=== PATIENT | female | born 1985 | race African-American/Black ===

== ENCOUNTER 2016-11-23 13:17 | Emergency (ER) | payer OTHER ==
[~2016-11-23] VITALS: Ht 167.6 cm; Wt 59.0 kg
[~2016-11-23 13:17] MED LIST: ACETAMINOPHEN500 M3 ORAL; AZITHROMYCIN250 MG ORAL; CYCLOBENZAPRINE10 MG ORAL; GYNE-LOTRIMIN45 GM VG; IBUPROFEN600 MG ORAL; METRONIDAZOLE500 MG ORAL; NKM; ZYRTEC10 MG ORAL
[2016-11-23 15:03] LABS: APPEARANCE,URINE CLEAR; KETONES,URINE NEGATIVE (NEGATIVE); LEUKOCYTE ESTERASE ,URINE 3+ (NEGATIVE); NITRITE,URINE NEGATIVE (NEGATIVE); PH,URINE 8 (4.5-8.0); PROTEIN,URINE NEGATIVE (NEGATIVE); UROBILINOGEN,URINE 1 MG/DL (0.0-1.0)
[2016-11-23] MEDS ORDERED: ZOFRAN4 M3 ORAL (15:05)
[2016-11-23 15:15] LABS: BACTERIA,URINE FEW /HPF; RBC,URINE 0-2 /HPF (0 - 2); SQUAMOUS EPITHELIAL CELL,UR FEW /LPF (NONE/OCC)
[2016-11-23] MEDS ORDERED: METRONIDAZOLE500 MG ORAL (15:33)
[2016-11-23 15:48] VITALS: BP 99/48
[2016-11-23 15:50] VITALS: BP 99/48
--- NOTE | 2016-11-23 23:09 | Emergency Room Report ---
History of Present Illness General Chief Complaint: Female Urogenital Problems Source: Patient Present Illness HPI The patient is a 31-year-old female sent in for 2 days of dysuria and white vaginal discharge with malodor. The patient denies nausea, vomiting, fever, chills, flank pain, abd pain Allergies: Coded Allergies: No Known Allergies (Unverified , 06/19/15) Patient History Past Medical History: see triage record Pertinent Family History: none Last Menstrual Period: 11/10/16 Now: No Reviewed Nursing Documentation: PMH: Agreed, PSxH: Agreed Nursing Documentation-PMH Past Medical History: No Stated History Review of Systems All Other Systems: negative except mentioned in HPI Physical Exam Vital Signs Date Time Temp Pulse Resp B/P Pulse Ox O2 Delivery O2 Flow Rate FiO2 11/23/16 13:25 98.8 106 16 81/51 97 Room Air Sp02 EP Interpretation: reviewed, normal General Appearance: no apparent distress, alert, GCS 15, non-toxic Head: normocephalic, atraumatic Eyes: bilateral eye PERRL, bilateral eye normal inspection ENT: hearing grossly normal, normal pharynx, no angioedema, normal voice Neck: full range of motion, supple/symm/no masses Respiratory: chest non-tender, lungs clear, normal breath sounds, speaking full sentences Cardiovascular #1: regular rate, rhythm, no edema Cardiovascular #2: 2+ carotid (R), 2+ carotid (L), 2+ radial (R), 2+ radial (L) , 2+ dorsalis pedis (R), 2+ dorsalis pedis (L) Gastrointestinal: normal bowel sounds, non tender, soft, non-distended, no guarding, no rebound Rectal: deferred Genitourinary: normal inspection, no CVA tenderness Musculoskeletal: back normal, gait/station normal, normal range of motion, non- tender Neurologic: alert, oriented x3, responsive, motor strength/tone normal, sensory intact, speech normal Psychiatric: judgement/insight normal, memory normal, mood/affect normal, no suicidal/homicidal ideation Reflexes: 3+ bicep (R), 3+ bicep (L), 3+ tricep (R), 3+ tricep (L), 3+ knee (R) , 3+ knee (L) Skin: normal color, no rash, warm/dry, well hydrated Lymphatic: no adenopathy Medical Decision Making PA Attestation Dr. Dang is my supervising physician. Patient management was discussed with my supervising physician Diagnostic Impression: Primary Impression: Bacterial vaginosis ER Course The patient is a 31-year-old female sent in for 2 days of dysuria and white vaginal discharge with malodor. The patient denies nausea, vomiting, fever, chills, flank pain, abd pain Differential diagnosis considered but not limited to: UTI, vaginitis, BV, pyelonephritis, ectopic PE: Vitals WNL. NAD. Abdomen: Normal appearance. Non distended. No ecchymosis. Normal BS. Non TTP. No McBurney point tenderness. No guarding. No CVA tenderness Labs: negative preg. UA not consistent with UTI The patient will be discharged home with a prescription for metronidazole. ER precautions are given Laboratory Tests Test 11/23/16 14:30 Urine Color Yellow Urine Appearance Clear Urine pH 8 (4.5-8.0) Urine Specific [place] 1.010 (1.005-1.035) Urine Protein Negative (NEGATIVE) Urine Glucose (UA) Negative (NEGATIVE) Urine Ketones Negative (NEGATIVE) Urine Occult Blood 1+ (NEGATIVE) H Urine Nitrite Negative (NEGATIVE) Urine Bilirubin Negative (NEGATIVE) Urine Urobilinogen 1 MG/DL (0.0-1.0) H Urine Leukocyte Esterase 3+ (NEGATIVE) H Urine RBC 0-2 /HPF (0 - 2) Urine WBC 2-4 /HPF (0 - 2) Urine Squamous Epithelial Cells Few /LPF (NONE/OCC) Urine Bacteria Few /HPF (NONE) Urine HCG, Qualitative Negative Lab Results Impression Not Consistent with UTI Last Vital Signs Date Time Temp Pulse Resp B/P Pulse Ox O2 Delivery O2 Flow Rate FiO2 11/23/16 15:50 98.8 98 16 99/48 97 Room Air Status: improved Disposition: HOME, SELF-CARE Condition: Improved Scripts Metronidazole* (FLAGYL*) 500 Mg Tablet 500 MG ORAL Q12HR, #14 TAB Prov: CINDY ANDRES 11/23/16 Patient Instructions: Bacterial Vaginosis Additional Instructions: I discussed my findings with the patient. All questions and concerns have been answered. Treatment and medication compliance have been addressed. I advised the patient that they need to follow up with PMD in 3-5 days. Return to ED if symptoms worsen, new symptoms arise, or if needed for any reason. Patient verbalized understanding of discharge instructions. CINDY ANDRES Nov 23, 2016 23:09
== END 2016-11-23 15:52 | disposition home or self-care (01) ==
LOC: EMR 13:40
DX: N76.0 Acute vaginitis (principal)
CPT/HCPCS: 81003; 81025; 99282

== ENCOUNTER 2019-01-27 10:05 | Emergency (ER) | payer OTHER ==
[~2019-01-27] VITALS: Ht 162.6 cm; Wt 63.5 kg
[~2019-01-27 10:05] MED LIST changes: +ZOFRAN4 M3 ORAL
[2019-01-27 10:15] VITALS: BP 96/57
--- NOTE | 2019-01-27 10:15 | NUR ---
ED Nurse Note: pt walked in to ED due to pain on between left 3rd and 4th digit toe. bursted blister noted. per pt, whitish discharge noted at home. no fever noted. will wait for the further order.
--- NOTE | 2019-01-27 11:46 | Emergency Room Report ---
History of Present Illness General Chief Complaint: Pain Source: Patient Present Illness HPI This patient states that the past couple weeks she has noticed an area of friable skin between her third and fourth toes. She states she's noted that is become ulcerated. She states it is a little tender but otherwise does not bother her. She has no history of trauma. She denies fever or chills. She has no other complaints. Allergies: Coded Allergies: No Known Allergies (Unverified , 06/19/15) Patient History Past Medical History: none, see triage record Past Surgical History: Social History: Denies: smoking, alcohol use, drug use Last Menstrual Period: 01/17/2019 Reviewed Nursing Documentation: PMH: Agreed; PSxH: Agreed Nursing Documentation-PMH Past Medical History: No Stated History Review of Systems All Other Systems: negative except mentioned in HPI Physical Exam Vital Signs Date Time Temp Pulse Resp B/P (MAP) Pulse Ox O2 Delivery O2 Flow Rate FiO2 01/27/19 10:09 98.2 71 16 96/57 97 Room Air Sp02 EP Interpretation: reviewed, normal General Appearance: no apparent distress, alert, GCS 15, non-toxic Head: normocephalic, atraumatic Eyes: bilateral eye normal inspection, bilateral eye PERRL ENT: hearing grossly normal, normal pharynx, no angioedema, normal voice Neck: normal inspection Respiratory: no respiratory distress, no retraction, no accessory muscle use, speaking full sentences Rectal: deferred Musculoskeletal: back normal, gait/station normal, normal range of motion, non- tender, other - See below in skin exam Neurologic: alert, oriented x3, responsive, motor strength/tone normal, sensory intact, speech normal Psychiatric: judgement/insight normal, memory normal, mood/affect normal, no suicidal/homicidal ideation Skin: well hydrated, other - Macerated skin with ulceration approximated 1 cm area between 3rd and 4th toes of the L. foot. Medical Decision Making Diagnostic Impression: Primary Impression: Tinea pedis ER Course This patient has findings consistent with tinea pedis. There is no evidence of infection or cellulitis. I will give the patient topical antifungals. The patient was also instructed to follow-up with a railcar switcher for her bunion on that same foot. She was also instructed to get close wound follow-up for the area of ulceration consistent with tinea pedis. Last Vital Signs Date Time Temp Pulse Resp B/P (MAP) Pulse Ox O2 Delivery O2 Flow Rate FiO2 01/27/19 10:15 98.2 71 16 96/57 97 Room Air Status: improved Disposition: HOME, SELF-CARE Condition: Improved Referrals: NON PHYSICIAN (PCP) Viridiana Carey DO Jan 27, 2019 11:46
[2019-01-27] MEDS ORDERED: NYSTATIN15 G2 TP (11:49)
[2019-01-27] MEDS ORDERED: TERBINAFINE HCL30 GM TP (11:49)
[2019-01-27 11:53] VITALS: BP 100/74
--- NOTE | 2019-01-27 11:54 | NUR ---
ER DISCHARGE NOTE: Patient is cleared to be discharged per ERMD, pt is aox4, on room air, with stable vital signs. pt was given dc and prescription instructions, pt was able to verbalize understanding, pt id band removed. pt is able to ambulate with steady gait. pt took all belongings.
== END 2019-01-27 11:54 | disposition home or self-care (01) ==
LOC: EMR 11:00
DX: B35.3 Tinea pedis (principal)
CPT/HCPCS: 99282

== ENCOUNTER 2019-03-15 08:48 | Emergency (ER) | payer OTHER ==
[~2019-03-15] VITALS: Ht 162.6 cm; Wt 62.1 kg
[~2019-03-15 08:48] MED LIST changes: +NYSTATIN15 G2 TP; +TERBINAFINE HCL30 GM TP
[2019-03-15] MEDS ORDERED: NKM (08:53)
--- NOTE | 2019-03-15 09:00 | NUR ---
ED Nurse Note: Patient walked into ED from home due to lower abdominal pain since Wednesday. patient also reports nausea, denies vomiting or diarrhea. patient reports that she did tests at home 03/26 were positive. patient is alert awake x4 ambulatory, breathing even and unlabored.
[2019-03-15 09:33] LABS: APPEARANCE,URINE CLEAR; BILIRUBIN, URINE NEGATIVE (NEGATIVE); COLOR,URINE PALE YELLOW; GLUCOSE, URINE (UA) NEGATIVE (NEGATIVE); KETONES,URINE NEGATIVE (NEGATIVE); LEUKOCYTE ESTERASE ,URINE 1+ (NEGATIVE); NITRITE,URINE NEGATIVE (NEGATIVE); PH,URINE 7 (4.5-8.0); PROTEIN,URINE NEGATIVE (NEGATIVE); UROBILINOGEN,URINE NORMAL MG/DL (0.0-1.0)
--- NOTE | 2019-03-15 09:37 | NUR ---
ED Nurse Note: blood/urine sent to lab
[2019-03-15 09:41] VITALS: BP 121/75
[2019-03-15 09:44] LABS: BASOPHILS % (AUTO) 0.6 % (0.0-2.0); EOSINOPHILS % (AUTO) 0.2 % (0.0-3.0); HEMATOCRIT 41.3 % (37.0-47.0); HEMOGLOBIN 14.3 G/DL (12.0-16.0); LYMPHOCYTES % (AUTO) 17.7 % (20.0-45.0); MEAN CORPUSCULAR VOLUME 94 FL (80-99); MONOCYTES % (AUTO) 8.5 % (1.0-10.0); PLATELET COUNT 244 K/UL (150-450); RED BLOOD COUNT 4.41 M/UL (4.20-5.40); RED CELL DISTRIBUTION WIDTH 10.7 % (11.6-14.8); WHITE BLOOD COUNT 8.5 K/UL (4.8-10.8)
[2019-03-15 09:53] LABS: ANION GAP 10 mmol/L (5-15); BLOOD UREA NITROGEN 14 mg/dL (7-18); CALCIUM 8.8 MG/DL (8.5-10.1); CARBON DIOXIDE 25 MMOL/L (21-32); CHLORIDE 99 MMOL/L (98-107); CREATININE 0.7 MG/DL (0.55-1.30); POTASSIUM 4.2 MMOL/L (3.5-5.1); SODIUM 134 MMOL/L (136-145)
[2019-03-15 09:58] LABS: ALANINE AMINOTRANSFERASE 25 U/L (12-78); ALBUMIN 4.3 G/DL (3.4-5.0); ALBUMIN/GLOBULIN RATIO 1.1 (1.0-2.7); ALKALINE PHOSPHATASE 59 U/L (46-116); ASPARTATE AMINO TRANSFERASE 18 U/L (15-37); BILIRUBIN,TOTAL 0.5 MG/DL (0.2-1.0)
--- NOTE | 2019-03-15 10:05 | NUR ---
ED Nurse Note: US CALLED
--- NOTE | 2019-03-15 10:33 | NUR ---
ED Nurse Note: patient went to ultrasound
--- NOTE | 2019-03-15 10:35 | Emergency Room Report ---
History of Present Illness General Chief Complaint: Abdominal Pain Source: Patient Present Illness HPI 34-year-old female presents ED for evaluation. Patient states that she's been experiencing cramping lower pain for the last few days. Dull, 5 out of 10, nonradiating. Denies dysuria. Denies vaginal bleeding. States that she took 5 tests at home which were all positive. States that she has since missed her period. No other aggravating relieving factors. Denies any other associated symptoms Allergies: Coded Allergies: ORANGE (Verified Allergy, Unknown, 03/15/19) Patient History Past Medical History: none Past Surgical History: none Pertinent Family History: none Social History: Denies: smoking, alcohol use, drug use Last Menstrual Period: FEBRUARY 12, 2019 Now: Yes Immunizations: UTD Reviewed Nursing Documentation: PMH: Agreed; PSxH: Agreed Review of Systems All Other Systems: negative except mentioned in HPI Physical Exam Vital Signs Date Time Temp Pulse Resp B/P (MAP) Pulse Ox O2 Delivery O2 Flow Rate FiO2 03/15/19 08:50 98.4 75 22 117/71 98 Room Air Sp02 EP Interpretation: reviewed, normal General Appearance: no apparent distress, alert, GCS 15, non-toxic Head: normocephalic, atraumatic Eyes: bilateral eye normal inspection, bilateral eye PERRL ENT: hearing grossly normal, normal pharynx, no angioedema, normal voice Neck: full range of motion, supple/symm/no masses Respiratory: chest non-tender, lungs clear, normal breath sounds, speaking full sentences Cardiovascular #1: regular rate, rhythm, no edema Cardiovascular #2: 2+ carotid (R), 2+ carotid (L), 2+ radial (R), 2+ radial (L) , 2+ dorsalis pedis (R), 2+ dorsalis pedis (L) Gastrointestinal: normal bowel sounds, non tender, soft, non-distended, no guarding, no rebound Rectal: deferred Genitourinary: normal inspection, no CVA tenderness Musculoskeletal: back normal, gait/station normal, normal range of motion, non- tender Neurologic: alert, oriented x3, responsive, motor strength/tone normal, sensory intact, speech normal Psychiatric: judgement/insight normal, memory normal, mood/affect normal, no suicidal/homicidal ideation Reflexes: 3+ bicep (R), 3+ bicep (L), 3+ tricep (R), 3+ tricep (L), 3+ knee (R) , 3+ knee (L) Skin: normal color, no rash, warm/dry, well hydrated Lymphatic: no adenopathy Medical Decision Making Diagnostic Impression: Primary Impression: Threatened ER Course Hospital Course 34-year-old female presents to ED complaining of lower abdominal pain. possible Differential diagnoses include: gastrits, gastroenterits, ectopic , ovarian torsion/cyst, UTI Clinical course Patient placed on stretcher in ED. After initial history and physical I ordered labs, IV fluids and OB US Labs-no leukocytosis, electrolytes okay, beta hCG 1800, UA negative OB ultrasound- early IUP detected without heart rate. No adnexal masses. Discussed findings with patient. Safe for discharge and close outpatient follow -up. States she needs a referral from her PMD to see RETURN TO FACTORY CLERK. I'll also provide referrals Diagnosis - threatened Stable and discharged to home with Rx Zofran. Followup with PMD/RETURN TO FACTORY CLERK. Return to ED if symptoms recur or worsen Labs Test 03/15/19 09:00 03/15/19 09:32 Urine Color Pale yellow Urine Appearance Clear Urine pH 7 (4.5-8.0) Urine Specific [place] 1.010 (1.005-1.035) Urine Protein Negative (NEGATIVE) Urine Glucose (UA) Negative (NEGATIVE) Urine Ketones Negative (NEGATIVE) Urine Blood Negative (NEGATIVE) Urine Nitrite Negative (NEGATIVE) Urine Bilirubin Negative (NEGATIVE) Urine Urobilinogen Normal MG/DL (0.0-1.0) Urine Leukocyte Esterase 1+ (NEGATIVE) Urine RBC 0-2 /HPF (0 - 2) Urine WBC 2-4 /HPF (0 - 2) Urine Squamous Epithelial Cells Moderate /LPF (NONE/OCC) Urine Bacteria Few /HPF (NONE) Urine HCG, Qualitative Positive (NEGATIVE) White Blood Count 8.5 K/UL (4.8-10.8) Red Blood Count 4.41 M/UL (4.20-5.40) Hemoglobin 14.3 G/DL (12.0-16.0) Hematocrit 41.3 % (37.0-47.0) Mean Corpuscular Volume 94 FL (80-99) Mean Corpuscular Hemoglobin 32.5 PG (27.0-31.0) Mean Corpuscular Hemoglobin Concent 34.7 G/DL (32.0-36.0) Red Cell Distribution Width 10.7 % (11.6-14.8) Platelet Count 244 K/UL (150-450) Mean Platelet Volume 6.0 FL (6.5-10.1) Neutrophils (%) (Auto) 73.0 % (45.0-75.0) Lymphocytes (%) (Auto) 17.7 % (20.0-45.0) Monocytes (%) (Auto) 8.5 % (1.0-10.0) Eosinophils (%) (Auto) 0.2 % (0.0-3.0) Basophils (%) (Auto) 0.6 % (0.0-2.0) Sodium Level 134 MMOL/L (136-145) Potassium Level 4.2 MMOL/L (3.5-5.1) Chloride Level 99 MMOL/L (98-107) Carbon Dioxide Level 25 MMOL/L (21-32) Anion Gap 10 mmol/L (5-15) Blood Urea Nitrogen 14 mg/dL (7-18) Creatinine 0.7 MG/DL (0.55-1.30) Estimat Glomerular Filtration Rate > 60 mL/min (>60) Glucose Level 80 MG/DL (74-106) Calcium Level 8.8 MG/DL (8.5-10.1) Total Bilirubin 0.5 MG/DL (0.2-1.0) Aspartate Amino Transf (AST/SGOT) 18 U/L (15-37) Alanine Aminotransferase (ALT/SGPT) 25 U/L (12-78) Alkaline Phosphatase 59 U/L (46-116) Total Protein 8.2 G/DL (6.4-8.2) Albumin 4.3 G/DL (3.4-5.0) Globulin 3.9 g/dL Albumin/Globulin Ratio 1.1 (1.0-2.7) Lipase 107 U/L (73-393) Human Chorionic Gonadotropin, Quant 1817 mIU/mL (1-6) CT/MRI/US Diagnostic Results CT/MRI/US Diagnostic Results : Imaging Test Ordered: OB US Impression Findings: Uterus measures 9.6 any length by 4.3 cm AP. Endometrium appears somewhat thickened. It measures up to 17 mm thick. 3 mm fluid collection is seen within the endometrium, equivocally with a small surrounding decidual reaction. No yolk sac , pole, heart activity demonstrated. Unremarkable endometrium. The ovaries demonstrate normal blood flow. Right ovary measures 3.6 cm length. Left ovary measures 3.3 cm length. No adnexal mass. There is a small amount of free cul-de- sac fluid Last Vital Signs Date Time Temp Pulse Resp B/P (MAP) Pulse Ox O2 Delivery O2 Flow Rate FiO2 03/15/19 09:43 82 17 Room Air 03/15/19 09:41 98.4 121/75 99 Status: improved Disposition: HOME, SELF-CARE Condition: Stable Scripts Ondansetron Odt* (ZOFRAN ODT*) 4 Mg Tab.rapdis 4 MG BC EVERY 6 HOURS PRN for Nausea & Vomiting, #30 TAB 0 Refills Prov: Zach Gaines MD 03/15/19 Referrals: NON PHYSICIAN (PCP) Zach Gaines MD Mar 15, 2019 10:35
--- NOTE | 2019-03-15 11:28 | NUR ---
ED Nurse Note: patient came back from US
[2019-03-15 12:28] VITALS: BP 118/71
[2019-03-15] MEDS ORDERED: ONDANSETRON ODT4 MG BC (12:32)
[2019-03-15 12:42] VITALS: BP 118/71
--- NOTE | 2019-03-15 12:59 | Diagnostic Imaging Report ---
Indication: Positive test, abdominal pain, pelvic pain Technique: Transabdominal and transvaginal images of the pelvis. Doppler interrogation of the ovaries Comparison: none Findings: Uterus measures 9.6 any length by 4.3 cm AP. Endometrium appears somewhat thickened. It measures up to 17 mm thick. 3 mm fluid collection is seen within the endometrium, equivocally with a small surrounding decidual reaction. No yolk sac, pole, heart activity demonstrated. Unremarkable endometrium. The ovaries demonstrate normal blood flow. Right ovary measures 3.6 cm length. Left ovary measures 3.3 cm length. No adnexal mass. There is a small amount of free cul-de-sac fluid Impression: 3 mm fluid collection within the endometrium, possibly but not definitively an early gestational sac. Recommend correlation with serial beta hCGs and follow-up sonography as indicated Trace free cul-de-sac fluid, presumably physiologic Negative for adnexal mass. Normal ovaries
== END 2019-03-15 12:42 | disposition home or self-care (01) ==
LOC: EMR 09:12
DX: O20.0 Threatened abortion (principal); Z3A.00 Weeks of gestation of pregnancy not specified; Z91.018 Allergy to other foods
CPT/HCPCS: 36415; 76801; 76830; 80053; 81003; 81025; 83690; 84702; 85025; 99284

== ENCOUNTER 2019-08-28 09:03 | Emergency (ER) | payer OTHER ==
[~2019-08-28] VITALS: Ht 162.6 cm; Wt 68.0 kg
[~2019-08-28 09:03] MED LIST changes: +ONDANSETRON ODT4 MG BC
[2019-08-28] MEDS ORDERED: CALCIUM500 M3 PO (09:12)
[2019-08-28] MEDS ORDERED: FOLIC ACID0.4 MG ORAL (09:12)
[2019-08-28] MEDS ORDERED: FERROUS SULFAT325 M2 ORAL (09:12)
--- NOTE | 2019-08-28 09:17 | NUR ---
ED Nurse Note: Patient walked in to ER, c/o on and off sharp pain on her upper left abdomen. Patient is 28 weeks for her 2nd baby. Patient stated that she noted vaginal whie thick discharge with no odor. No bleeding noted. Patient denied taking any pain medication. Noted with incision scar on her lower abdomen s/p ceasarian section. No edema noted.
--- NOTE | 2019-08-28 09:20 | NUR ---
ED Nurse Note: Assessed the heart rate. heart rate is 125bpm using heart doppler. Patient stated that she often feels contactions especially at night and feels the presence of her heartbeat.
--- NOTE | 2019-08-28 09:38 | Emergency Room Report ---
History of Present Illness General Chief Complaint: Complications Source: Patient Present Illness HPI 34-year-old female with a history of iron-deficiency anemia who is at 7 months gestation presents with uucv-xi-[id number] intensity left upper quadrant sharp, nonradiating, intermittent pain for the past 3 days, reports she thinks it is worse during the daytime, cannot think of any other obvious alleviating or exacerbating factors such as positioning or p.o. intake, and she reports that she has not tried any medications for her symptoms. Denies vaginal bleeding, loss of fluids, contractions, pelvic pain, fevers, shortness of breath , chest pain, diarrhea, constipation, urinary symptoms, back pain and reports that her [employer] is a Dr. Yasmeen Haney out of [place], and she plans to deliver somewhere in [facility] but is not sure exactly which hospital. Allergies: Coded Allergies: ORANGE (Verified Allergy, Unknown, 03/15/19) Patient History Past Medical History: see triage record Social History: Denies: alcohol use, drug use Now: Yes : 2 Reviewed Nursing Documentation: PMH: Agreed; PSxH: Agreed Nursing Documentation-PMH Past Medical History: No Stated History Review of Systems All Other Systems: negative except mentioned in HPI Physical Exam Vital Signs Date Time Temp Pulse Resp B/P (MAP) Pulse Ox O2 Delivery O2 Flow Rate FiO2 08/28/19 09:07 98.2 70 19 103/59 (74) 97 Room Air Sp02 EP Interpretation: reviewed, normal General Appearance: no apparent distress, alert, non-toxic Head: normocephalic Eyes: bilateral eye normal inspection, bilateral eye PERRL, bilateral eye EOMI ENT: normal ENT inspection, hearing grossly normal, normal pharynx, no angioedema, normal voice, moist mucus membranes Neck: normal inspection, full range of motion, supple, supple/symm/no masses Respiratory: chest non-tender, lungs clear, normal breath sounds, chest symmetrical, palpation of chest normal Cardiovascular #1: normal peripheral pulses, regular rate, rhythm Cardiovascular #2: 2+ radial (R), 2+ radial (L) Gastrointestinal: normal inspection, non tender, soft, no guarding, no rebound , other - gravid to 4 fingerbreadths above umbilicus, nontender Rectal: deferred Genitourinary: normal inspection, no CVA tenderness Musculoskeletal: back normal, gait/station normal, normal range of motion, non- tender, no calf tenderness Neurologic: alert, responsive, electromechanical inspector III-XII nml as tested, motor strength/tone normal, sensory intact, speech normal Psychiatric: judgement/insight normal, memory normal, mood/affect normal Lymphatic: no adenopathy Medical Decision Making Diagnostic Impression: Primary Impression: Abdominal pain affecting Additional Impression: UTI (urinary tract infection) in in third trimester ER Course Patient With left upper quadrant pain, possible gastritis, and , suspect GI pathology, gastritis versus GERD, do not suspect pancreatitis, pyelonephritis, bowel obstruction, given history, physical, basic labs. He was given a GI cocktail. Review of records reveal that she was here in February, was diagnosed with threatened at the time, and has obviously progressed with an otherwise healthy thus far. She does not complain of vaginal bleeding, so no pelvic cramping nor contractions, no loss of fluids. Workup shows possible UTI. Will give macrobid, and I d/w Dr. Hernandez at [facility] , accepted in transfer to L&D there. Patient given macrobid rx to take with her , aluminum hydroxide antacid here. Last Vital Signs Date Time Temp Pulse Resp B/P (MAP) Pulse Ox O2 Delivery O2 Flow Rate FiO2 08/28/19 09:07 98.2 70 19 103/59 (74) 97 Room Air Disposition: [facility] Condition: Stable SANAZ DE LA PAZ M.D Aug 28, 2019 09:38
[2019-08-28] MEDS ORDERED: GI Cocktail 50ml ORAL ONE (09:45)
[2019-08-28] MEDS ORDERED: Aluminum Hydroxide Gel Susp 15ml ORAL ONE (10:00)
[2019-08-28 10:02] LABS: BASOPHILS % (AUTO) 0.5 % (0.0-2.0); EOSINOPHILS % (AUTO) 0.1 % (0.0-3.0); HEMATOCRIT 37.2 % (37.0-47.0); HEMOGLOBIN 12.9 G/DL (12.0-16.0); LYMPHOCYTES % (AUTO) 9.6 % (20.0-45.0); MEAN CORPUSCULAR VOLUME 97 FL (80-99); MONOCYTES % (AUTO) 7.6 % (1.0-10.0); NEUTROPHILS % (AUTO) 82.2 % (45.0-75.0); PLATELET COUNT 205 K/UL (150-450); RED BLOOD COUNT 3.84 M/UL (4.20-5.40); RED CELL DISTRIBUTION WIDTH 11.1 % (11.6-14.8); WHITE BLOOD COUNT 8.5 K/UL (4.8-10.8)
[2019-08-28 10:06] LABS: APPEARANCE,URINE CLEAR; BILIRUBIN, URINE NEGATIVE (NEGATIVE); COLOR,URINE PALE YELLOW; GLUCOSE, URINE (UA) NEGATIVE (NEGATIVE); KETONES,URINE NEGATIVE (NEGATIVE); LEUKOCYTE ESTERASE ,URINE 1+ (NEGATIVE); NITRITE,URINE NEGATIVE (NEGATIVE); PH,URINE 8 (4.5-8.0); PROTEIN,URINE NEGATIVE (NEGATIVE); UROBILINOGEN,URINE NORMAL MG/DL (0.0-1.0)
[2019-08-28 10:11] LABS: ANION GAP 9 mmol/L (5-15); BLOOD UREA NITROGEN 7 mg/dL (7-18); CALCIUM 8.8 MG/DL (8.5-10.1); CARBON DIOXIDE 24 MMOL/L (21-32); CHLORIDE 102 MMOL/L (98-107); CREATININE 0.6 MG/DL (0.55-1.30); POTASSIUM 3.6 MMOL/L (3.5-5.1); SODIUM 135 MMOL/L (136-145)
--- NOTE | 2019-08-28 10:12 | NUR ---
ED Nurse Note: Per patient she just felt abdominal contraction for 10 seconds and it went away.Patient stated that she did not feel vaginal contraction since she noted shes . Per patient no episodes of nausea and vomiting. Patient is taking Iron and calcium at betdtime. No constipation and diarrhea episodes stated by patient.
[2019-08-28 10:17] LABS: ALANINE AMINOTRANSFERASE 31 U/L (12-78); ALBUMIN 3.2 G/DL (3.4-5.0); ALBUMIN/GLOBULIN RATIO 0.8 (1.0-2.7); ALKALINE PHOSPHATASE 64 U/L (46-116); ASPARTATE AMINO TRANSFERASE 18 U/L (15-37); BILIRUBIN,TOTAL 0.4 MG/DL (0.2-1.0)
[2019-08-28 10:20] VITALS: BP 100/59
[2019-08-28] MEDS ORDERED: NITROFURANTOIN100 M2 ORAL (10:57)
--- NOTE | 2019-08-28 11:26 | NUR ---
ED Nurse Note: Called [facility] L&D triage for the patient. Spoke and give report to BEVERLY Nunez. Informed her picking supervisor time from [facility] is 11:30am.
--- NOTE | 2019-08-28 11:57 | NUR ---
ED Nurse Note: Patient laying in bed, resting comfortably. No reports of any abdominal contraction at this time. Patient denies pain at thsi time
--- NOTE | 2019-08-28 12:20 | NUR ---
ED Nurse Note: [facility] to [facility] L[facility]D dept for further evaluation
[2019-08-28 12:28] VITALS: BP 110/63
--- NOTE | 2019-08-28 12:28 | NUR ---
ER DISCHARGE NOTE: Patient was being tranferred to [facility] via [facility] ambulance for further evaluation. IV intact. Skin intact.
== END 2019-08-28 12:28 | disposition short-term general hospital (02) ==
LOC: EMR 09:55
DX: O26.893 Other specified pregnancy related conditions, third trimester (principal); R10.12 Left upper quadrant pain; O23.43 Unspecified infection of urinary tract in pregnancy, third trimester; Z3A.00 Weeks of gestation of pregnancy not specified
CPT/HCPCS: 36415; 80053; 81003; 83690; 84702; 85025; Z7502; 99284

== ENCOUNTER 2020-04-28 04:50 | Emergency (ER) | payer MEDICAID, OTHER ==
[~2020-04-28] VITALS: Ht 162.6 cm; Wt 63.5 kg
[~2020-04-28 04:50] MED LIST changes: +CALCIUM500 M3 PO; +FERROUS SULFAT325 M2 ORAL; +FOLIC ACID0.4 MG ORAL; +NITROFURANTOIN100 M2 ORAL
[2020-04-28] MEDS ORDERED: IBUPROFEN600 M1 ORAL (05:00)
--- NOTE | 2020-04-28 05:07 | NUR ---
ED Nurse Note: patient ambulated to ed with c/o sore throat and bilateral earache x 1 week. patient reports difficulty swallowing; denies sob. Recently seen at [facility] ED for same pharyngitis; reports worsening symptoms. Patient ao4. nad. vss. ambulates with steady gait.
[2020-04-28 05:08] VITALS: BP 117/64
[2020-04-28] MEDS ORDERED: AMOXICILLIN500 MG ORAL (05:22)
[2020-04-28 05:25] VITALS: BP 117/64
--- NOTE | 2020-04-28 05:29 | Emergency Room Report ---
History of Present Illness General Chief Complaint: Sore Throat Source: Patient Present Illness HPI 35-year-old female presents for sore throat. She has had sore throat for the past week. She reports painful swallowing, 9 out of 10. Also bilateral ear pain. She was seen at an outside facility approximately 1 week ago and prescribed ibuprofen which initially helped but however now is worse. She denies any sick contacts fevers nausea vomiting or cough. Denies shortness of breath. Allergies: Coded Allergies: ORANGE (Verified Allergy, Unknown, 03/15/19) COVID-19 Screening Contact w/high risk pt: No Recent Travel to affected area: No Experienced COVID-19 symptoms?: No COVID-19 Testing performed B2B APPOINTMENT SETTER: No Patient History Last Menstrual Period: 03/26/20 Now: No Reviewed Nursing Documentation: PMH: Agreed; PSxH: Agreed Nursing Documentation-PMH Past Medical History: No History, Except For Review of Systems All Other Systems: negative except mentioned in HPI Physical Exam Vital Signs Date Time Temp Pulse Resp B/P (MAP) Pulse Ox O2 Delivery O2 Flow Rate FiO2 04/28/20 04:55 98.4 74 16 117/64 (81) 97 Room Air Sp02 EP Interpretation: reviewed, normal General Appearance: well appearing, no apparent distress Head: normocephalic, atraumatic Eyes: bilateral eye PERRL, bilateral eye EOMI ENT: hearing grossly normal, moist mucus membranes, tonsillar exudate - Bilaterally, uvula midline Neck: full range of motion, supple Respiratory: lungs clear, normal breath sounds, no rhonchi, no respiratory distress, no retraction, no wheezing Cardiovascular #1: normal peripheral pulses, regular rate, rhythm, no murmur Gastrointestinal: non tender, soft, non-distended, no guarding Neurologic: alert, oriented x3, no focal defects Skin: normal color, warm/dry Medical Decision Making Diagnostic Impression: Primary Impression: Strep pharyngitis ER Course MDM: Differential included strep pharyngitis, viral pharyngitis, less likely retropharyngeal abscess. Clinical course-patient's exam consistent with strep pharyngitis. Bilateral tonsillar exudates. Symptoms present for 9 days. Absence of cough. Will treat with p.o. amoxicillin, amoxicillin given for 10 days. Instructed to follow-up with PMD. Return precautions were given. Stable for discharge. Last Vital Signs Date Time Temp Pulse Resp B/P (MAP) Pulse Ox O2 Delivery O2 Flow Rate FiO2 04/28/20 05:08 98.4 76 16 117/64 97 Room Air Disposition: HOME, SELF-CARE Condition: Stable Scripts Amoxicillin* (AMOXIL*) 500 Mg Capsule 500 MG ORAL BID, #20 CAP Prov: Davonte Aguilar M.D. 04/28/20 Patient Instructions: Strep Throat, [id number] Additional Instructions: Patient is instructed to follow-up with her primary care doctor, primary care clinic or formerly [facility] in 1 to 2 days. Patient instructed to return for any worsening symptoms or concerns. Disclaimer: Please note that this report is being documented using [employer] technology. This can lead to erroneous entry secondary to incorrect interpretation by the dictating instrument. Davonte Aguilar M.D. Apr 28, 2020 05:29
== END 2020-04-28 05:25 | disposition home or self-care (01) ==
LOC: EMR 05:00
DX: J02.0 Streptococcal pharyngitis (principal); Z91.018 Allergy to other foods
CPT/HCPCS: 99282